=== PATIENT | female | born 1950 | race Caucasian/White ===

== ENCOUNTER → 2017-11-12 | Outpatient (CLI) | payer OTHER | LOC: BHLMT 14:00 | PROVIDERS: ATTEND Internal Medicine Cardiovascular Disease | DX: I49.1 Atrial premature depolarization (principal); I47.1 Supraventricular tachycardia; I49.5 Sick sinus syndrome; I77.810 Thoracic aortic ectasia; I10 Essential (primary) hypertension; E78.5 Hyperlipidemia, unspecified; Z95.0 Presence of cardiac pacemaker | CPT/HCPCS: 93005-PO ==

== ENCOUNTER → 2018-06-09 | Outpatient (CLI) | payer OTHER | LOC: BHLMT 14:00 | PROVIDERS: ATTEND Internal Medicine Cardiovascular Disease | DX: I49.1 Atrial premature depolarization (principal); I10 Essential (primary) hypertension | CPT/HCPCS: 93306-PO ==